=== PATIENT | female | born 1960 | race African-American/Black ===

== ENCOUNTER 2020-06-04 10:27 | Emergency (ER) | payer OTHER ==
[2020-06-04 10:45] VITALS: BMI 38.7
--- NOTE | 2020-06-04 10:46 | PDOC ---
History of Present Illness - General Chief Complaint: Pain Stated Complaint: BACK PAIN Time Seen by Provider: 06/04/20 10:46 History Source: Patient Exam Limitations: No Limitations - History of Present Illness Initial Comments: 06/04/20 11:00 59yF w PMHx COPD, chronic pain, peptic ulcer, morbid obesity presenting w 3d RLQ pain, nausea, nonproductive cough. Took ibuprofen w/o relief. Denies fever, chills, vomiting, chest pain, SOB, ABD distension, dysuria, still has normal BM. Past History - Medical History Allergies/Adverse Reactions: Allergies Allergy/AdvReac Type Severity Reaction Status Date / Time No Known Drug Allergies Allergy Verified 06/04/20 10:43 Home Medications: Ambulatory Orders Tramadol HCl 50 mg PO Q4HWA #20 tablet 06/12/14 Albuterol Sulfate Inhaler - [Ventolin HFA Inhaler -] 2 inh IH Q6H PRN 03/28/15 Citalopram Hydrobromide [Celexa -] 20 mg PO DAILY 03/28/15 Ibuprofen [Motrin -] 800 mg PO DAILY PRN 03/28/15 Montelukast Na [Singulair -] 10 mg PO HS 03/28/15 Pramipexole Di-HCl [Mirapex] 0.25 mg PO DAILY 03/28/15 Cephalexin Monohydrate [Keflex -] 500 mg PO Q6H 7 Days #28 capsule 06/04/20 Ibuprofen 600 mg PO Q6H 7 Days #28 tablet 06/04/20 Anemia: No Asthma: Yes Cancer: No Cardiac Disorders: No CVA: No COPD: Yes CHF: No Dementia: No Diabetes: Yes GI Disorders: No Disorders: No HTN: No Hypercholesterolemia: No Liver Disease: No Seizures: No Thyroid Disease: No - Surgical History Cholecystectomy: Yes - Psycho-Social/Smoking History Smoking History: Never smoked Have you smoked in the past 12 months: Yes Number of Cigarettes Smoked Daily: 10 'Breaking Loose' booklet given: 06/19/14 - Substance Abuse Hx (Audit-C & DAST Scrn) How often the patient has a drink containing alcohol: Never Score: In Men: 4 or > Positive; In Women: 3 or > Positive: 0 Screen Result (Pos requires Nsg. Audit-10AR): Negative Review of Systems - Review of Systems Constitutional: No: Chills, Fever HEENTM: No: Eye Pain, Nose Pain Respiratory: Yes: Cough. No: Shortness of Breath Cardiac (ROS): No: Chest Pain, Palpitations ABD/GI: Yes: Nausea. No: Constipated, Diarrhea, Vomiting : No: Burning, Dysuria Musculoskeletal: No: Back Pain, Joint Pain Integumentary: No: Bruising Neurological: No: Headache, Seizure Psychiatric: No: Anxiety, Depression Endocrine: No: Intolerance to Cold, Intolerance to Heat Hematologic/Lymphatic: No: Anemia, Blood Clots *Physical Exam - Vital Signs Last Vital Signs Temp Pulse Resp BP Pulse Ox 97.1 F L 67 18 165/92 100 06/04/20 10:43 06/04/20 10:43 06/04/20 10:43 06/04/20 10:43 06/04/20 10:43 - Physical Exam General Appearance: Yes: Nourished, Appropriately Dressed, Moderate Distress HEENT: positive: EOMI, VERONIKA, Normal Voice, Hearing Grossly Normal. negative: Scleral Icterus (R), Scleral Icterus (L) Respiratory/Chest: positive: Lungs Clear, Normal Breath Sounds. negative: Chest Tender, Respiratory Distress Cardiovascular: positive: Regular Rhythm, Regular Rate, S1, S2. negative: Edema, Murmur Gastrointestinal/Abdominal: positive: Normal Bowel Sounds, Tender (mod RLQ), Flat, Soft. negative: Organomegaly, Rebound, Mass Musculoskeletal: positive: CVA Tenderness (R). negative: CVA Tenderness (L) Integumentary: positive: Normal Color, Warm Neurologic: positive: Fully Oriented, Alert, Normal Response, Responsive ED Treatment Course - LABORATORY CBC & Chemistry Diagram: 06/04/20 11:32 06/04/20 11:32 Medical Decision Making - Medical Decision Making 06/04/20 15:36 CT A/P - punctate 2mm R midrenal nonobstructing stone, no acute pathology --- 59yF w PMHx COPD, chronic pain, peptic ulcer, morbid obesity presenting w 3d RLQ pain, nausea, nonproductive cough. Has UTI and 2mm R nonobstructing stone Given morphine w relief DC home w keflex, PCP f/u Discharge - Discharge Information Problems reviewed: Yes Clinical Impression/Diagnosis: UTI (urinary tract infection) Qualifiers: Urinary tract infection type: acute cystitis Hematuria presence: with hematuria Qualified Code(s): N30.01 - Acute cystitis with hematuria Condition: Improved Disposition: HOME - Additional Discharge Information Prescriptions: Ibuprofen 600 mg PO Q6H 7 Days #28 tablet Cephalexin Monohydrate [Keflex -] 500 mg PO Q6H 7 Days #28 capsule - Follow up/Referral Referrals: Rigo Collado [Primary Care Provider] - - Patient Discharge Instructions Patient Printed Discharge Instructions: DI for Urinary Tract Infection (UTI) Additional Instructions: Take the prescribed keflex as directed Take tylenol or ibuprofen for pain Drink lots of water Follow up with your primary care doctor - Post Discharge Activity
[2020-06-04] MEDS ORDERED: morphine CARPU-JECT 4 MG/1 ML DISP.SYRIN IVPUSH ONE ×2 (11:00→12:24)
[2020-06-04] MEDS ORDERED: ONDANSETRON 4 MG/2 ML VIAL IVPUSH ONE (11:07)
[2020-06-04] MEDS ORDERED: SODIUM CHLORIDE 0.9% 500 ML INFUS.BAG IV ONE (11:07)
[2020-06-04] MEDS ORDERED: MORPHINE SULFATE 2 MG/ML VIAL ONE ×2 (11:36→11:50)
[2020-06-04 12:16] LABS: BASO % 0.7 % (0-2.0); EOS % 4.4 % (0-4.5); HEMOGLOBIN 12.5 GM/dL (10.7-15.3); LYMPH % 24.3 % (8-40); MCH 31.6 pg (25.7-33.7); MCHC 32.8 g/dl (32.0-36.0); MEAN CELL VOLUME 96.3 fl (80-96); MEAN PLT VOLUME 9.1 fl (7.5-11.1); MONO % 4.5 % (3.8-10.2); NEUT % 66.1 % (42.8-82.8); PLATELET COUNT 226 K/MM3 (134-434); RBC 3.95 M/mm3 (3.60-5.2); RDW 13.9 % (11.6-15.6); WHITE BLOOD COUNT 11.3 K/mm3 (4.0-10.0)
[2020-06-04 12:22] LABS: INR 1.07 (0.83-1.09); PROTHROMBIN TIME (PATIENT) 12.6 SEC (9.7-13.0)
[2020-06-04 12:37] LABS: ALBUMIN 3.5 g/dl (3.4-5.0); BILIRUBIN,TOTAL 0.3 mg/dL (0.2-1); BLOOD UREA NITROGEN 10.8 mg/dL (7-18); CREATININE 0.9 mg/dL (0.55-1.3); POTASSIUM 3.9 mmol/L (3.5-5.1); TOT PROT 6.9 g/dl (6.4-8.2)
[2020-06-04] MEDS ORDERED: morphine SULFATE 4 MG/ML VIAL ONE (13:40)
[2020-06-04 15:07] LABS: EPI CELLS 17 /uL (0-25.1); HYALINE CASTS 3 /uL (0-3.1); PH,URINE 6.5 (5.0-8.0); URINE APPEARANCE CLEAR; URINE BACTERIA 126 /uL (0-1359); URINE BILIRUBIN NEGATIVE (NEGATIVE); URINE COLOR YELLOW; URINE GLUCOSE (UA) NEGATIVE (NEGATIVE); URINE KETONE NEGATIVE (NEGATIVE); URINE LEUK ESTERASE 1+ (NEGATIVE); URINE NITRITE NEGATIVE (NEGATIVE); URINE PROTEIN TRACE (NEGATIVE); URINE RBC 272 /uL (0-23.9); URINE WBC 143 /uL (0-25.8)
--- NOTE | 2020-06-04 16:01 | PDOC ---
Documentation entered by Imtiaz Gil SCRIBE, acting as scribe for Jair Marie MD. Jair Marie MD: This documentation has been prepared by the scribe, Imtiaz Gil SCRIBE, under my direction and personally reviewed by me in its entirety. I confirm that the documentation accurately reflects all work, treatment, procedures, and medical decision making performed by me. Attending Attestation - Resident Resident Name: [email or web address] palencia - ED Attending Attestation I have performed the following: I have examined & evaluated the patient, The case was reviewed & discussed with the resident, I agree w/resident's findings & plan, Exceptions are as noted - HPI HPI: 06/04/20 12:28 The patient is a 59 year old female with a significant past medical history of COPD, OA, DM asthma, peptic ulcer, and chronic pain who presents to the ED, [facility], for evaluation of right lower quadrant pain that began three days ago. She endorses a nonproductive cough and nausea that began three days ago and one episode of NBNB vomiting today. The patient denies chest pain and shortness of breath. Denies fever, chills and/or any GI symptoms. Denies any symptoms. Denies any other symptoms. Allergies: NKDA Social Hx: She endorses smoking 10 cigarettes per day. Surgical Hx: Cholecystectomy, Arthroscopy PCP: Dr. Collado - Physicial Exam PE: 06/04/20 12:12 GENERAL: The patient is awake, alert, and fully oriented, Nontoxic - in no acute distress. HEAD: Normocephalic, atraumatic. EYES: extraocular movements intact, sclera anicteric, conjunctiva clear. ENT: Normal voice, Moist mucous membranes. NECK: Normal range of motion, supple without lymphadenopathy, JVD, or masses. LUNGS: Breath sounds equal, clear to auscultation bilaterally. No wheezes, no crackles, no rales. HEART: Regular rate and rhythm, normal S1 and S2 without murmur, rub or gallop. ABDOMEN: Soft, mild RLQ ttp, no rebound/guarding, no cvat EXTREMITIES: Normal range of motion, no edema. No clubbing or cyanosis. No cords, erythema, or tenderness. NEUROLOGICAL: No facial asymmetry, Normal speech, normal gait. PSYCH: Normal mood, normal affect. SKIN: Warm, Dry, normal turgor, no rashes or lesions noted. - Medical Decision Making 06/04/20 12:26 59y F hx of COPD, PUD, chronic pain persents with 2 days of R back panin and RLQ pain. 1 epiode of nbnb vmiing, denies any fever/chills, cp, sob, cp, dysuria, frequency. +cva/rlq tenderness 06/04/20 15:[address] noted for 2mm stone in kind[place], no igns of hydroureter/hydronephrosis 06/04/20 16:01 ua sugestif of uti carol treat with abx retrn precautions were discussed Discharge - Discharge Information Problems reviewed: Yes Clinical Impression/Diagnosis: UTI (urinary tract infection) Qualifiers: Urinary tract infection type: acute cystitis Hematuria presence: with hematuria Qualified Code(s): N30.01 - Acute cystitis with hematuria Condition: Improved Disposition: HOME - Additional Discharge Information Prescriptions: Ibuprofen 600 mg PO Q6H 7 Days #28 tablet Cephalexin Monohydrate [Keflex -] 500 mg PO Q6H 7 Days #28 capsule - Follow up/Referral Referrals: Rigo Collado [Primary Care Provider] - - Patient Discharge Instructions Patient Printed Discharge Instructions: DI for Urinary Tract Infection (UTI) Additional Instructions: Take the prescribed keflex as directed Take tylenol or ibuprofen for pain Drink lots of water Follow up with your primary care doctor - Post Discharge Activity
[2020-06-04 16:25] VITALS: BP 155/74; PULSE 78; TEMP 98
== END 2020-06-04 16:24 | disposition home or self-care (01) ==
LOC: JER 10:27
PROC: 3E033NZ Introduction of Analgesics, Hypnotics, Sedatives into Peripheral Vein, Percutaneous Approach (ICD-10-PCS; principal; 2020-06-04)
PROC: 3E033GC Introduction of Other Therapeutic Substance into Peripheral Vein, Percutaneous Approach (ICD-10-PCS; 2020-06-04)
DX: N30.01 Acute cystitis with hematuria (principal)
CPT/HCPCS: 36415; 74176-TC; 80053; 81003; 83605; 83690; 85025; 85610; 86850; 86900; 86901; 87086; 87186; 99284-25

== ENCOUNTER 2021-04-22 05:22 | Day surgery (SDC) | payer OTHER ==
[2021-04-22 10:32] VITALS: BMI 38.7
[2021-04-22 14:40] VITALS: PULSE 66
[2021-04-22 16:32] VITALS: BP 145/80; TEMP 97.8
== END 2021-04-22 14:30 | disposition home or self-care (01) ==
LOC: JASU-SURG 05:22
PROVIDERS: ATTEND Physical Medicine & Rehabilitation
PROC: 3E0R33Z Introduction of Anti-inflammatory into Spinal Canal, Percutaneous Approach (ICD-10-PCS; 2021-04-22)
PROC: 3E0R3BZ Introduction of Anesthetic Agent into Spinal Canal, Percutaneous Approach (ICD-10-PCS; principal; 2021-04-22 10:30)
DX: M54.16 Radiculopathy, lumbar region (principal); M54.5 Low back pain
CPT/HCPCS: 76000-TC-FY; 82962